=== PATIENT | male | born 1990 | race Caucasian/White ===

== ENCOUNTER 2016-05-20 13:31 | Emergency (ER) | payer MEDICAID, OTHER ==
[~2016-05-20] VITALS: Ht 167.6 cm; Wt 63.0 kg
[2016-05-20 13:39] VITALS: Ht 167.6 cm; Wt 63.0 kg
[2016-05-20] MEDS ORDERED: DIPHTH/TET/ACEL PERTUSS (ADULT) 0.5 ML VIAL IM* ONE (14:30)
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
[2016-05-20] MEDS ORDERED: IBUP-1542 PO (16:33)
[2016-05-20] MEDS ORDERED: ACET500C5 PO (16:33)
--- NOTE | 2016-05-20 17:49 | RADRPT ---
PROCEDURE: XR Finger. CLINICAL INDICATION: Left second digit pain, trauma. TECHNIQUE: Three views of the left fingers are available for review. COMPARISON: None available FINDINGS: There is no evidence of fracture or dislocation. The joint spaces are maintained. The bony mineralization is normal. There are no lytic or blastic lesions. No bone destruction or erosions identified. The soft tissues are unremarkable. No radiopaque foreign body is identified. IMPRESSION: 1. Unremarkable left second digit x-ray series. RPTAT: QQ .Alvaro Escobar MD, MD Date Time Electronically viewed and signed by .Alvaro Escobar MD, on 05/20/2016 15:45 .M/
== END 2016-05-20 16:50 | disposition home or self-care (01) ==
LOC: FTE 13:31
DX: S69.92XA Unspecified injury of left wrist, hand and finger(s), initial encounter (principal); W26.8XXA Contact with other sharp object(s), not elsewhere classified, initial encounter; Y92.9 Unspecified place or not applicable; Z23 Encounter for immunization
CPT/HCPCS: 29130; 73140; 90471; 90715; Z7502